=== PATIENT | female | born 1960 | race Caucasian/White ===

== ENCOUNTER 2016-10-13 11:44 | Emergency (ER) | payer BC ==
[2016-10-13 11:52] VITALS: BP 183/75
== END 2016-10-14 02:37 | disposition left against medical advice (07) ==
LOC: ER 11:44
DX: Z53.9 Procedure and treatment not carried out, unspecified reason (principal); R53.1 Weakness

== ENCOUNTER → 2016-10-13 | Outpatient (CLI) | payer BC | LOC: RAD 10:40 | PROVIDERS: ATTEND Internal Medicine | DX: E21.3 Hyperparathyroidism, unspecified (principal) | CPT/HCPCS: 78070; A9500; Q9969 ==

== ENCOUNTER → 2016-10-14 | Outpatient (CLI) | payer BC | LOC: WI 13:59 | PROVIDERS: ATTEND Internal Medicine | DX: Z12.31 Encounter for screening mammogram for malignant neoplasm of breast (principal); R92.2 Inconclusive mammogram | CPT/HCPCS: 77067; G0202 ==

== ENCOUNTER → 2016-10-27 | Outpatient (CLI) | payer BC | LOC: WI 09:31 | PROVIDERS: ATTEND Internal Medicine | DX: R92.0 Mammographic microcalcification found on diagnostic imaging of breast (principal) | CPT/HCPCS: G0206-52 ==

== ENCOUNTER → 2016-11-03 | Day surgery (SDC) | payer BC ==
[~2016-11-03] MED LIST: LIDOCAINE 1%/EPINEPHRINE INJ 20 ML VIAL ONE
== END ==
LOC: RAD 08:46
PROVIDERS: ATTEND Internal Medicine
PROC: 0HBT3ZX Excision of Right Breast, Percutaneous Approach, Diagnostic (ICD-10-PCS; principal; 2016-11-03)
DX: C50.911 Malignant neoplasm of unspecified site of right female breast (principal); Z17.0 Estrogen receptor positive status [ER+]; D05.11 Intraductal carcinoma in situ of right breast
CPT/HCPCS: 88305 ×2; 88342; 19081; J3490; 76098

== ENCOUNTER → 2016-11-25 | Outpatient (CLI) | payer BC ==
--- NOTE | 2016-11-25 11:29 | RADIOLOGY REPORT (SQ) ---
EXAM DESCRIPTION: PET CT SKULL/THIGH COMPLETED DATE/TIME: 11/25/2016 11:14 am REASON FOR STUDY: BREAST CA C50.919 MALIGNANT NEOPLASM OF UNSP SITE OF UNSPECIFIED FEMAL COMPARISON: None. RADIONUCLIDE AND DOSE: 15.0 mCi F18 FDG The route of agent administration: Intravenous FASTING BLOOD SUGAR: 156 mg/dl CONTRAST TYPE AND DOSE: No CT contrast given. TECHNIQUE: Blood glucose level was verified. Above dose of FDG was injected intravenously. 2-D seg mented attenuation correction images were obtained from the base of the skull to the midthighs. Nonc ontrast CT images were obtained for attenuation correction and fusion with emission images. CT image s were performed without oral or intravenous contrast and are not sensitive for parenchymal lesions. A series of overlapping emission PET images were obtained. Images reviewed and manipulated at [facility] work station by the radiologist. Images stored on PACS. LIMITATIONS: None. FINDINGS: HEAD AND NECK: No areas of abnormal metabolic activity in the soft tissues of the head and neck. CHEST: No areas of abnormal metabolic activity in the chest. ABDOMEN AND PELVIS: No areas of abnormal metabolic activity in the abdomen or pelvis. Expected physi ologic activity is present in the genitourinary system and bowel. PROXIMAL LOWER EXTREMITIES: No areas of abnormal metabolic activity in the soft tissues of the lower extremities. ADDITIONAL CT FINDINGS: No additional significant findings on the noncontrast CT images. OTHER: No other significant findings. IMPRESSION: NEGATIVE PET-CT. NO ABNORMAL AREAS OF METABOLIC ACTIVITY. TECHNICAL DOCUMENTATION: JOB ID: [id number] [employer]- All Rights Reserved
== END ==
LOC: RAD 11-22 14:59
PROVIDERS: ATTEND Internal Medicine Medical Oncology
DX: C50.919 Malignant neoplasm of unspecified site of unspecified female breast (principal)
CPT/HCPCS: 78815; A9552

== ENCOUNTER → 2017-03-16 | Outpatient (CLI) | payer BC ==
[2017-03-16 16:24] LABS: ABSOLUTE BASOPHILS # (AUTO) 0.1 10^3/uL (0.0-0.2); ABSOLUTE EOSINOPHILS # (AUTO) 0.3 10^3/uL (0.0-0.6); ABSOLUTE LYMPHOCYTES (AUTO) 3.3 10^3/uL (0.5-4.7); ABSOLUTE MONOCYTES (AUTO) 0.7 10^3/uL (0.1-1.4); ABSOLUTE NEUT (AUTO) 7.2 10^3/uL (1.7-8.2); BASOPHILS % (AUTO) 0.8 % (0-2); EOSINOPHILS % (AUTO) 2.8 % (0-6); LYMPHOCYTES % (AUTO) 28.4 % (13-45); MEAN CORPUSCULAR HEMOGLOBIN 31.6 pg (27.0-33.4); MEAN CORPUSCULAR HGB CONC 34.2 g/dL (32.0-36.0); MEAN CORPUSCULAR VOLUME 93 fl (80-97); MONOCYTES % (AUTO) 6.4 % (3-13); RED BLOOD COUNT 4.43 10^6/uL (3.72-5.28); RED CELL DISTRIBUTION WIDTH 13.9 % (11.5-14.0); SEGMENTED NEUTROPHILS % (AUTO) 61.6 % (42-78); WHITE BLOOD COUNT 11.7 10^3/uL (4.0-10.5)
[2017-03-16 16:47] LABS: ALANINE AMINOTRANSFERASE 41 U/L (9-52); ALBUMIN 4.7 g/dL (3.5-5.0); ALKALINE PHOSPHATASE 76 U/L (38-126); ASPARTATE AMINO TRANSFERASE 26 U/L (14-36); BILIRUBIN,DIRECT 0.4 mg/dL (0.0-0.4); BILIRUBIN,TOTAL 0.4 mg/dL (0.2-1.3); TOTAL PROTEIN 7.3 g/dL (6.3-8.2)
== END ==
LOC: OD 15:29
PROVIDERS: ATTEND Radiology Radiation Oncology
DX: C50.411 Malignant neoplasm of upper-outer quadrant of right female breast (principal); Z17.0 Estrogen receptor positive status [ER+]; Z79.899 Other long term (current) drug therapy
CPT/HCPCS: 36415; 80076; 85025

== ENCOUNTER → 2017-08-24 | Outpatient (CLI) | payer BC ==
--- NOTE | 2017-08-24 16:58 | WOMENS IMAGING REPORT ---
EXAM DESCRIPTION: RIGHT DIAGNOSTIC MAMMO W/CAD COMPLETED DATE/TIME: 08/24/2017 10:33 am REASON FOR STUDY: MALIGNANT NEOPLASM OF UPPER-OUTER QUADRANT OF RIGHT BREAST C50.411 MALIG NEOPLM O F UPPER-OUTER QUADRANT OF RIGHT FEMALE COMPARISON: Multiple mammograms since 2010 TECHNIQUE: Standard craniocaudal and mediolateral oblique images of the breast recorded with digital acquisition. Additional right breast 90 mediolateral view. Right breast compression magnification views in the C C and MLO orientations LIMITATIONS: None. FINDINGS: BREAST: Right MASSES: No suspicious masses. CALCIFICATIONS: No new or suspicious calcifications. ARCHITECTURAL DISTORTION: Postoperative change in the right breast upper outer quadrant DEVELOPING DENSITY: None. ASYMMETRY: None noted. OTHER: Surgical clips remi the area of prior resection, right upper outer quadrant for DCIS. Read with the assistance of CAD. .[facility] - R2 Cen[employer] Version 1.3 .[facility] Imaging - R2 Cenova Version 1.3 .[facility] - R2 Cenova Version 2.4 .[facility] [place] Cenova Version 2.4 .[facility] - R2 Der[employer] Version 9.2 IMPRESSION: Post therapeutic changes right breast. BREAST DENSITY: b. There are scattered areas of fibroglandular density. BIRAD: 2 Benign findings. RECOMMENDATION: RECOMMENDED FOLLOW UP: Patient is due for screening exam on the left in October 2017 SPECIFIC INTERVENTION/IMAGING/CONSULTATION RECOMMENDED:No additional intervention/ imaging/consultati on needed at this time. COMMUNICATION:Patient notified by letter COMMENT: The patient has been notified of the results by letter per SA requirements. Additional no tification policies are in place for contacting patient with suspicious or incomplete findings. Quality ID #225: The [employer] recommends an annual screening mammogram for women aged 40 years or over. This facility utilizes a reminder system to ensure that all patients receive reminder letters, and/or direct phone calls for appointments. This includes reminders for routine scr eening mammograms, diagnostic mammograms, or other Breast Imaging Interventions when appropriate. Th is patient will be placed in the appropriate reminder system. The [employer] (ACR) has developed recommendations for screening MRI of the breast s in certain patient populations, to be used in conjunction with mammography. Breast MRI surveillanc e may be appropriate for women with more than 20% lifetime risk of developing breast cancer as deter mined by genetic testing, significant family history of the disease, or history of mantle radiation f or Hodgkins Disease. ACR Practice Guidelines 2008. TECHNICAL DOCUMENTATION: FINDING NUMBER: (1) ASSESSMENT: (1) JOB ID: [id number] [employer]- All Rights Reserved
== END ==
LOC: WI 09:47
PROVIDERS: ATTEND Surgery
DX: C50.411 Malignant neoplasm of upper-outer quadrant of right female breast (principal)

== ENCOUNTER → 2017-11-09 | Outpatient (CLI) | payer BC ==
--- NOTE | 2017-11-10 10:35 | WOMENS IMAGING REPORT ---
EXAM DESCRIPTION: 3D SCREENING MAMMO LEFT COMPLETED DATE/TIME: 11/09/2017 3:50 pm REASON FOR STUDY: ROUTINE SCREENING;Z12.31 Z12.31 ENCNTR SCREEN MAMMOGRAM FOR MALIGNANT NEOPLASM OF OLLIE COMPARISON: [id number] TECHNIQUE: Standard craniocaudal and mediolateral oblique views of the breast recorded using digital acquisition and breast tomosynthesis. LIMITATIONS: None. FINDINGS: BREAST: left No masses, calcifications or architectural distortion. No areas of suspicion. Read with the assistance of CAD. .[facility] - R2 Cenova Version 1.3 .[facility] Imaging - R2 Cenova Version 1.3 .[facility] Imaging - R2 Cenova Version 2.4 .[facility] [place] R2 Cenova Version 2.4 .[facility] - R2 [employer] Version 9.2 IMPRESSION: NORMAL MAMMOGRAM. BIRADS 1. BREAST DENSITY: b. There are scattered areas of fibroglandular density. BIRAD: 1 Negative RECOMMENDATION: RECOMMENDATION: ROUTINE SCREENING. COMMENT: The patient has been notified of the results by letter per SA requirements. Additional no tification policies are in place for contacting patient with suspicious or incomplete findings. Quality ID #[id number]: The [employer] recommends an annual screening mammogram for women aged 40 years or over. This facility utilizes a reminder system to ensure that all patients receive reminder letters, and/or direct phone calls for appointments. This includes reminders for routine scr eening mammograms, diagnostic mammograms, or other Breast Imaging Interventions when appropriate. Th is patient will be placed in the appropriate reminder system. The [employer] (ACR) has developed recommendations for screening MRI of the breast s in certain patient populations, to be used in conjunction with mammography. Breast MRI surveillance may be appropriate for women with more than 20% lifetime risk of developing breast cancer as determi cheryl by genetic testing, significant family history of the disease, or history of mantle radiation for Hodgkins Disease. ACR Practice Guidelines 2008. DBT Technology DBT is a type of tomographic mammography. With conventional mammography, overlapping breast tissue ma y make lesions difficult to detect, even with good compression. DBT uses an x-ray tube that rotates a round the breast, taking images at different angles. These images are then combined to create thin sl ices of the breast that the radiologist can view as a 3D reconstruction. The [employer] unit can perform full-field digital mammograms (2D imaging); or DBT (3D imaging); or both, in a combination mode that quickly performs both the mammogram and the tomosynthesis scan while the breast is still compressed. PQRS 6045F: Fluoroscopic imaging is not utilized for breast tomosynthesis. TECHNICAL DOCUMENTATION: FINDING NUMBER: (1) ASSESSMENT: (1) JOB ID: [id number] [employer]- All Rights Reserved Reading location - IP/workstation name: [email or web address]
== END ==
LOC: WI 13:39
PROVIDERS: ATTEND Internal Medicine Medical Oncology
DX: Z12.31 Encounter for screening mammogram for malignant neoplasm of breast (principal)

== ENCOUNTER 2019-01-02 16:01 | Emergency (ER) | payer BC ==
[2019-01-02] MEDS ORDERED: ASPIRIN 81 MG TABLET, CHEWABLE PO ONE (17:40)
[2019-01-02] MEDS ORDERED: NORMAL SALINE 1000 ML 1,000 ML IV ONE (17:41)
--- NOTE | 2019-01-02 17:42 | ER Document Report ---
Addendum entered and electronically signed by MANDEEP DAVIS NP 01/02/19 18:46: Course - Re-evaluation Re-evalutation: 01/02/19 18:45 Patient complains of increased pain to the chest and a feeling lightheaded. Patient is nauseous spitting up small amounts of emesis to bag. Patient complains of feeling diaphoretic. Patient hyperventilating in triage. - Vital Signs Vital signs: Temp Pulse Resp BP Pulse Ox 98.0 F 111 H 22 H 182/78 H 100 01/02/19 18:40 01/02/19 18:40 01/02/19 18:40 01/02/19 18:40 01/02/19 18:40 - Laboratory Result Diagrams: 01/02/19 18:12 01/02/19 18:12 Laboratory results interpreted by me: 01/02/19 01/02/19 18:12 18:12 WBC 14.3 H Absolute Neutrophils 10.1 H VBG pH 7.58 H VBG pCO2 18.8 L* VBG HCO3 17.3 L Original Note: ED Medical Screen (RME) - General Chief Complaint: Dizziness Stated Complaint: DIZZINESS Time Seen by Provider: 01/02/19 17:40 Primary Care Provider: RENE BREAUX MD [Primary Care Provider] - Follow up as needed Mode of Arrival: Wheelchair Information source: Patient Notes: Patient presents complaining of weakness nausea vomiting and dizziness for the past week. Patient states that she smells exhaust fumes constantly even though there is no fumes that exist. Patient states that around 4:00 today she had midsternal chest pain and upper back pain. hx: MS, hypertension, dyslipidemia, breast lumpectomy, thyroid cancer I have greeted and performed a rapid initial assessment of this patient. A comprehensive ED assessment and evaluation of the patient, analysis of test results and completion of the medical decision making process will be conducted by additional ED providers. TRAVEL OUTSIDE OF THE [place] IN LAST 30 DAYS: No - Related Data Allergies/Adverse Reactions: Penicillins Allergy (Severe, Verified 01/02/19 16:03) Hives adhesive tape [Adhesive Tape] Allergy (Mild, Verified 01/02/19 16:03) rash acetaminophen [From Percocet] Allergy (Verified 01/02/19 16:03) oxycodone [From Percocet] Allergy (Verified 01/02/19 16:03) Past Medical History - Past Medical History Cardiac Medical History: Reports: Hx Hypertension Endocrine Medical History: Reports: Hx Diabetes Mellitus Type 2 Renal/ Medical History: Denies: Hx Peritoneal Dialysis Past Surgical History: Reports: Hx Gynecologic Surgery - cyst on L ovary, removed left ovary, Hx Tonsillectomy - Immunizations Hx Diphtheria, Pertussis, Tetanus Vaccination: - unknown Physical Exam - Vital signs Vitals: Temp Pulse Resp BP Pulse Ox 98.1 F 108 H 16 179/80 H 98 01/02/19 16:09 01/02/19 16:09 01/02/19 16:09 01/02/19 16:09 01/02/19 16:09 - Cardiovascular Rhythm: Tachycardia Heart sounds: S1 appreciated, S2 appreciated Course - Vital Signs Vital signs: Temp Pulse Resp BP Pulse Ox 98.1 F 108 H 16 179/80 H 98 01/02/19 16:09 01/02/19 16:09 01/02/19 16:01/02/19 16:01/02/19 16:09 Doctor's Discharge - Discharge Referrals: RENE BREAUX MD [Primary Care Provider] - Follow up as needed
--- NOTE | 2019-01-02 18:05 | RADIOLOGY REPORT (SQ) ---
EXAM DESCRIPTION: CHEST 2 VIEWS COMPLETED DATE/TIME: 01/02/2019 5:54 pm REASON FOR STUDY: sob COMPARISON: None. EXAM PARAMETERS: NUMBER OF VIEWS: two views TECHNIQUE: Digital Frontal and Lateral radiographic views of the chest acquired. RADIATION DOSE: NA LIMITATIONS: none FINDINGS: LUNGS AND PLEURA: No opacities, masses or pneumothorax. No pleural effusion. MEDIASTINUM AND HILAR STRUCTURES: No masses. The ascending aorta appears prominent. HEART AND VASCULAR STRUCTURES: Heart normal size. No evidence for failure. BONES: No acute findings. HARDWARE: None in the chest. OTHER: Metallic clips localized to the right anterolateral extrathoracic tissues. IMPRESSION: No evidence of acute cardiopulmonary abnormality. TECHNICAL DOCUMENTATION: JOB ID: [id number] [employer]- All Rights Reserved Reading location - IP/workstation name: [email or web address]
[2019-01-02 18:32] LABS: ABSOLUTE BASOPHILS # (AUTO) 0.1 10^3/uL (0.0-0.2); ABSOLUTE LYMPHOCYTES (AUTO) 3.2 10^3/uL (0.5-4.7); ABSOLUTE MONOCYTES (AUTO) 0.9 10^3/uL (0.1-1.4); ABSOLUTE NEUT (AUTO) 10.1 10^3/uL (1.7-8.2); BASOPHILS % (AUTO) 0.6 % (0-2); EOSINOPHILS % (AUTO) 0.2 % (0-6); HEMATOCRIT 43.7 % (36.0-47.0); HEMOGLOBIN 15.3 g/dL (12.0-15.5); LYMPHOCYTES % (AUTO) 22.2 % (13-45); MEAN CORPUSCULAR HEMOGLOBIN 30.2 pg (27.0-33.4); MEAN CORPUSCULAR HGB CONC 35.1 g/dL (32.0-36.0); MEAN CORPUSCULAR VOLUME 86 fl (80-97); MONOCYTES % (AUTO) 6.2 % (3-13); PLATELET COUNT 353 10^3/uL (150-450); RED BLOOD COUNT 5.08 10^6/uL (3.72-5.28); RED CELL DISTRIBUTION WIDTH 13.2 % (11.5-14.0); SEGMENTED NEUTROPHILS % (AUTO) 70.8 % (42-78); TOTAL CELLS COUNTED % (AUTO) 100 %; WHITE BLOOD COUNT 14.3 10^3/uL (4.0-10.5)
[2019-01-02 18:42] LABS: VENOUS BLOOD BASE EXCESS -1.4 mmol/L; VENOUS BLOOD HCO3 17.3 mmol/L (20-32); VENOUS BLOOD PH 7.58 (7.30-7.42)
[2019-01-02 18:45] LABS: VENOUS BLOOD PCO2 18.8 mmHg (35-63)
[2019-01-02] MEDS ORDERED: PROCHLORPERAZINE EDISYLATE INJ 10 MG/2 ML VIAL IV ONE (18:45)
[2019-01-02] MEDS ORDERED: DIPHENHYDRAMINE HCL 50 MG/ML VIAL IV ONE (18:45)
[2019-01-02 19:00] LABS: ALANINE AMINOTRANSFERASE 28 U/L (9-52); ALBUMIN 5.3 g/dL (3.5-5.0); ALKALINE PHOSPHATASE 70 U/L (38-126); ASPARTATE AMINO TRANSFERASE 29 U/L (14-36); BILIRUBIN,DIRECT 0.4 mg/dL (0.0-0.4); BILIRUBIN,TOTAL 0.9 mg/dL (0.2-1.3); BLOOD UREA NITROGEN 10 mg/dL (7-20); CALCIUM 9.8 mg/dL (8.4-10.2); GLUCOSE 116 mg/dL (75-110); POTASSIUM 3.2 mmol/L (3.6-5.0); TOTAL PROTEIN 8.8 g/dL (6.3-8.2)
[2019-01-02 19:06] LABS: CARBON DIOXIDE 20 mmol/L (22-30); CHLORIDE 87 mmol/L (98-107); SODIUM 129.3 mmol/L (137-145)
[2019-01-02 19:10] LABS: ANION GAP 22 (5-19)
[2019-01-02] MEDS ORDERED: RINGERS SOLUTION,LACTATED 1,000 ML IV ONE (20:13)
--- NOTE | 2019-01-02 20:49 | ER Document Report ---
ED General - General Chief Complaint: Dizziness Stated Complaint: DIZZINESS Time Seen by Provider: 01/02/19 17:40 Primary Care Provider: RENE BREAUX MD [ACTIVE STAFF] - Follow up as needed Mode of Arrival: Wheelchair Notes: Patient is a 58-year-old female with a past medical history of diabetes, recently started on Trulicity and states that since starting this medication she has nausea, vomiting, diarrhea, feels very flushed and generally unwell. She states that the symptoms usually start the day that she gives herself the medication and then seems to taper off 5 to 6 days after the last dose. She states however last week the medication dosing was increased and since then she has felt "terrible". Describes diffuse muscular skeletal aches, soreness, fatigue, nausea, vomiting and diarrhea. She states that she is drinking approximately 1 to 2 gallons of free water daily. She discussed with her primary care physician who advised her to discontinue Trulicity. Last dose was approximately 1 week ago. Patient states that since receiving IV fluids here in the emergency department she feels much better. She denies any point she had chest pain or shortness of breath. Denies focal weakness or loss of sensation. No confusion, syncope or severe headache. Regards her symptoms overall as being severe, constant but gradually improving over the last several days. She also reports that she frequently feels like she can smell "gas fumes" and notes that she has an infected tooth and feels like when she breathes and is when she can smell the fumes the most. She has not yet seen a dentist regarding her dental concerns. Denies fever. Denies difficulty breathing or swallowing. TRAVEL OUTSIDE OF THE [place] IN LAST 30 DAYS: No - Related Data Allergies/Adverse Reactions: Penicillins Allergy (Severe, Verified 01/02/19 16:03) Hives adhesive tape [Adhesive Tape] Allergy (Mild, Verified 01/02/19 16:03) rash acetaminophen [From Percocet] Allergy (Verified 01/02/19 16:03) oxycodone [From Percocet] Allergy (Verified 01/02/19 16:03) Past Medical History - General Information source: Patient - Social History Smoking Status: Never Smoker Frequency of alcohol use: None Drug Abuse: None Lives with: Spouse/Significant other Family History: Reviewed & Not Pertinent Patient has suicidal ideation: No Patient has homicidal ideation: No - Past Medical History Cardiac Medical History: Reports: Hx Hypercholesterolemia, Hx Hypertension Endocrine Medical History: Reports: Hx Diabetes Mellitus Type 2 Renal/ Medical History: Denies: Hx Peritoneal Dialysis Past Surgical History: Reports: Hx Breast Surgery - lumpectomy, Hx Gynecologic Surgery - cyst on L ovary, removed left ovary, Hx Thyroid Surgery, Hx Tonsillectomy - Immunizations Hx Diphtheria, Pertussis, Tetanus Vaccination: - unknown Review of Systems - Review of Systems Notes: Constitutional: Negative for fever. Positive for fatigue HENT: Positive for dental infection Eyes: Negative for visual changes. Cardiovascular: Negative for chest pain. Respiratory: Negative for shortness of breath. Gastrointestinal: Negative for abdominal pain, positive for vomiting and diarrhea Genitourinary: Negative for dysuria. Musculoskeletal: Negative for back pain. Skin: Negative for rash. Neurological: Negative for headaches, weakness or numbness. 10 point ROS negative except as marked above and in HPI. Physical Exam - Vital signs Vitals: Temp Pulse Resp BP Pulse Ox 98.1 F 108 H 16 179/80 H 98 01/02/19 16:09 01/02/19 16:09 01/02/19 16:09 01/02/19 16:09 01/02/19 16:09 Interpretation: Hypertensive, Tachycardic Notes: PHYSICAL EXAMINATION: GENERAL: Well-appearing, well-nourished and in no acute distress. HEAD: Atraumatic, normocephalic. EYES: Pupils equal round and reactive to light, extraocular movements intact, sclera anicteric, conjunctiva are normal. ENT: nares patent, oropharynx clear without exudates. Moist mucous membranes. NECK: Normal range of motion, supple without lymphadenopathy LUNGS: Breath sounds clear to auscultation bilaterally and equal. No wheezes rales or rhonchi. HEART: Regular rate and rhythm without murmurs ABDOMEN: Soft, nontender, normoactive bowel sounds. No guarding, no rebound. No masses appreciated. EXTREMITIES: Normal range of motion, no pitting or edema. No cyanosis. NEUROLOGICAL: Face symmetric. Tongue protrudes midline. Extraocular motions intact. Pupils are 2 mm and equally reactive. Normal speech, normal gait. 5 out of 5 strength in both the distal and proximal upper and lower extremities bilaterally. Sensation is grossly intact throughout. Finger to nose testing normal. Pronator drift normal. PSYCH: Moderately anxious SKIN: Warm, Dry, normal turgor, no rashes or lesions noted. Course - Re-evaluation Re-evalutation: 01/02/19 20:48 Patient presents with symptoms most consistent with adverse reaction to Trulicity particular given that she has had these symptoms ever since this medication was started and it dramatically worsened after the dosing was increased. Patient's labs do demonstrate findings consistent with a respiratory alkalosis likely secondary to hyperventilation in triage which has since resolved. CMP does show hyponatremia, hypokalemia, hypochloremia and mildly decreased bicarbonate again consistent with vomiting, diarrhea and taking in excess free water. Patient's vitals have normalized since coming to her room and receiving IV fluids. No longer tachycardic. Patient has no focal abdominal tenderness, rebound or guarding. Breath sounds are clear. Denies chest pain. EKG unremarkable. Troponin negative. Do not believe serial markers are indic ated given low suspicion for ACS. Clinical history not consistent with pulmonary embolus, aortic dissection, or acute surgical abdominal pathology. I have advised her to continue avoiding Trulicity, reduce the amount of free water that she is taking and have her labs rechecked by her primary care physician within the next 24 to 48 hours. At this time will discharge with return precautions and follow-up recommendations. Verbal discharge instructions given a the bedside and opportunity for questions given. Medication warnings reviewed. Patient is in agreement with this plan and has verbalized understanding of return precautions and the need for primary care follow-up in the next 24-72 hours. - Vital Signs Vital signs: Temp Pulse Resp BP Pulse Ox 98.0 F 111 H 14 164/89 H 99 01/02/19 18:40 01/02/19 18:40 01/02/19 20:18 01/02/19 20:18 01/02/19 20:18 - Laboratory Result Diagrams: 01/02/19 18:12 01/02/19 18:12 Laboratory results interpreted by me: 01/02/19 01/02/19 01/02/19 18:12 18:12 18:12 WBC 14.3 H Absolute Neutrophils 10.1 H VBG pH 7.58 H VBG pCO2 18.8 L* VBG HCO3 17.3 L Sodium 129.3 L Potassium 3.2 L Chloride 87 L Carbon Dioxide 20 L Anion Gap 22 H Glucose 116 H Total Protein 8.8 H Albumin 5.3 H - Diagnostic Test Radiology reviewed: Image reviewed, Reports reviewed Radiology results interpreted by me: 01/02/19 20:49 Chest x-ray: No acute infiltrate or pneumothorax - EKG Interpretation by Me Additional EKG results interpreted by me: 01/02/19 20:49 Sinus rhythm, rate 86, no ST elevations or depressions. QTC 503 Discharge - Discharge Clinical Impression: Nausea vomiting and diarrhea, Dental infection, Hyponatremia, Hypokalemia Medication adverse effect Qualifiers: Encounter type: initial encounter Qualified Code(s): T50.905A - Adverse effect of unspecified drugs, medicaments and biological substances, initial encounter Condition: Stable Disposition: HOME, SELF-CARE Additional Instructions: You were seen today for nausea, vomiting, diarrhea likely secondary to Trulicity. Please discontinue this medication and do not restart. You need to have your elect lites rechecked by your primary care doctor within the next 48 to 72 hours to ensure that they have normalized. Continue to stay hydrated with plenty of solution such as Gatorade or Pedialyte. You are being prescribed Zofran to take as needed for nausea and vomiting. Please return if you develop severe abdominal pain, pass out, become unable to tolerate any oral fluids for 12 more hours, or any other symptoms that are concerning to you. You have been seen for a dental infection. It is very important that you follow-up with a dentist for definitive care. Please return if you develop fever greater than 101, swelling in your face, vomiting, difficulty breathing or swallowing, or any other symptoms that are concerning to you. Take antibiotics as prescribed. Prescriptions: Clindamycin HCl 300 mg PO TID #30 capsule Referrals: RENE BREAUX MD [ACTIVE STAFF] - Follow up as needed
[2019-01-02] MEDS ORDERED: MAGNESIUM OXIDE 400 MG TABLET PO ONE (20:50)
[2019-01-02] MEDS ORDERED: POTASSIUM CHLORIDE 10 MEQ CAPSULE.ER PO ONE (20:50)
[2019-01-02] MEDS ORDERED: CLINDAMYCIN HCL 150 MG CAPSULE PO ONE (20:57)
[2019-01-02 22:16] VITALS: BP 110/75
--- NOTE | 2019-01-03 00:35 | EKG REPORT ---
SEVERITY:- ABNORMAL ECG - SINUS RHYTHM BORDERLINE R WAVE PROGRESSION, ANTERIOR LEADS BORDERLINE T ABNORMALITIES, INFERIOR LEADS BORDERLINE PROLONGED QT INTERVAL : Confirmed by: Celeste Graves 03-Jan-2019 00:34:23
== END 2019-01-02 22:20 | disposition home or self-care (01) ==
LOC: ER 16:01
DX: E87.1 Hypo-osmolality and hyponatremia (principal); E87.6 Hypokalemia; R19.7 Diarrhea, unspecified; K04.7 Periapical abscess without sinus; R11.2 Nausea with vomiting, unspecified; R42 Dizziness and giddiness; T50.905A Adverse effect of unspecified drugs, medicaments and biological substances, initial encounter; X58.XXXA Exposure to other specified factors, initial encounter; E11.9 Type 2 diabetes mellitus without complications; R23.2 Flushing; Z79.84 Long term (current) use of oral hypoglycemic drugs
CPT/HCPCS: 93005; 99284; 96361; 96374; 96375; 36415; 82962; 85025; 80053; 84484; 82803; 71046; 93010; J1200; J0780; J7030; J7120